=== PATIENT | male | born 1960 | race Caucasian/White ===

== ENCOUNTER → 2017-12-10 09:06 | Outpatient (CLI) | payer OTHER, SELFPAY ==
--- NOTE | 2017-12-15 08:19 | PM.PFT.1 ---
Pulmonary Function Test Referral & Results Date Patient Seen: 12/10/17 Requesting provider: Sera Crews Indication: Dyspnea Results: The spirometry demonstrates an FVC of 4.24 L which is 70% of predicted. The FEV1 was measured at 2.36 L which is 56% of predicted. The FEV1/FVC ratio was 56 which is 72% of predicted. Following the administration of bronchodilator there was a 23% improvement in FEV1 and a 70% improvement in FEF 25-75%. Lung volumes show an SVC of 4.39 L which is 83% of predicted. The diffusing capacity was measured at 41.79 which is 114% of predicted. The maximum voluntary ventilation was not performed. Interpretation: This study demonstrates moderately severe obstructive lung disease with evidence of significant benefit following bronchodilator administration There is also minimal reduction in lung volumes suggesting some element of restrictive lung disease present as well.
== END ==
PROVIDERS: Visit Provider Nurse Practitioner Adult Health
DX: J98.8 Other specified respiratory disorders (principal)
CPT/HCPCS: 94010; 94060; 94726; 94729